=== PATIENT | female | born 1965 ===

== ENCOUNTER 2017-11-12 05:58 | Day surgery (SDC) | payer MEDICAID ==
[2017-11-01 09:24] VITALS: BMI 39.9
[2017-11-12 07:09] VITALS: O2SAT 99
[2017-11-12] MEDS ORDERED: Bupivacaine HCl 0.25% PF (30 ml) Inj ONE (07:39)
[2017-11-12] MEDS ORDERED: ceFAZolin 1 gm in NS 1 GM/100 ML BAG IVPB ONE ×2 (07:39→08:15)
[2017-11-12] MEDS ORDERED: Lidocaine Hydrochloride 10 ML INJ ONE (07:39)
[2017-11-12] MEDS ORDERED: Dexamethasone 4 mg/1 ml ONE (07:40)
[2017-11-12] MEDS ORDERED: Midazolam 2 MG/2 ML VIAL ONE (08:06)
[2017-11-12] MEDS ORDERED: Propofol 10 mg/ml Inj (20 ML) ONE ×2 (08:08→08:35)
[2017-11-12] MEDS ORDERED: Phenylephrine 10 mg/ml Inj ONE (08:14)
[2017-11-12] MEDS ORDERED: Lactated Ringer's 1,000 ML IV ONE (08:15)
--- NOTE | 2017-11-12 09:52 | PCM.SURG1 ---
Surgeon's Initial Post Op Note - Surgeon's Notes Surgeon: Dr. Zachary Villa Vice President Pharmacy: Dr. Yvrose Borjas PGY-2 Type of Anesthesia: IV Sedation, Local Anesthesia Administered By: Kimberly (OIL DISTRIBUTOR TENDER) Pre-Operative Diagnosis: painful hallux abductovalgus deformity R foot, painful exostosis of midfoot R foot Operative Findings: see op report Post-Operative Diagnosis: same Operation Performed: bunionectomy with horizontal osteotomy and screw fixation R foot, exostectomy of exostosis midfoot all R foot Specimen/Specimens Removed: bone R foot Estimated Blood Loss: EBL {In ML}: 1 Blood Products Given: N/A Drains Used: No Drains Post-Op Condition: Good Date of Surgery/Procedure: 11/12/17 Time of Surgery/Procedure: 08:30
[2017-11-12] MEDS ORDERED: HYDROmorphone 0.5 mg/0.5 ml ISec IVP PRN (09:54)
[2017-11-12] MEDS ORDERED: Lactated Ringer's 1,000 ML IV SCH (10:00)
--- NOTE | 2017-11-12 10:20 | RAD ---
PROCEDURE: Right Foot Radiographs. HISTORY: s/p R foot surgery COMPARISON: 08/27/2017 FINDINGS: BONES: Status post bunionectomy and osteotomy right 1st metatarsal. No acute fracture. No other surgical changes. JOINTS: Normal. SOFT TISSUES: Normal. OTHER FINDINGS: None. IMPRESSION: Bunionectomy and osteotomy 1st metatarsal.
[2017-11-12 12:36] VITALS: BP 112/72; PULSE 85; RESP 18; TEMP 98.1
--- NOTE | 2017-11-13 02:46 | OP ---
PROCEDURE DATE: 11/12/2017 PREOPERATIVE DIAGNOSES: 1. Hallux abductor valgus deformity of right foot. 2. Painful exostosis of second tarsometatarsal joint, right foot. POSTOPERATIVE DIAGNOSES: 1. Hallux abductor valgus deformity of right foot. 2. Painful exostosis of second tarsometatarsal joint, right foot. PROCEDURE PERFORMED: 1. Efren bunionectomy with horizontal osteotomy with screw fixation, right foot. 2. Mid foot exostectomy of second tarsometatarsal joint, right foot. SURGEON: Ron Villa DPM INDUSTRIAL BOILERMAKER: Daiana Borjas DPM, PGY-2 TYPE OF ANESTHESIA: MAC IV sedation with local injection. ANESTHESIOLOGIST: Dr. Serrato; and Abdullahi Hoover CRNA . INDICATIONS: The patient is a 51-year-old female with the above-mentioned diagnosis. The patient is being treated by Dr. Villa in his office on an outpatient basis, where she has exhausted multiple forms of conservative treatment options including, but not limited to, home physical therapy, exercise, injections, and oral anti-inflammatories. The patient now requests surgical intervention at this time. All risks, benefits, and possible complication to the proposed procedure have been explained to the patient at length. The patient verbalized understanding and wished to proceed. All questions were answered. No guarantee's were given nor implied. Consent was signed and n.p.o. was confirmed prior to bringing the patient into the operating room. DESCRIPTION OF PROCEDURE: The patient was brought into the operating room and placed on the operating room table in a supine position. A well-padded pneumatic ankle tourniquet was applied in a supramalleolar position to the patient's right ankle. Once IV sedation was achieved, a local injection consisting of 20 mL, consisting of 0.25% Marcaine plain with 2% lidocaine plain in a 1:1 mixture was introduced via local block fashion to the patient's right foot. Once local anesthesia was achieved, the foot was then prepped and draped in the usual sterile manner and the procedure was begun. Procedure #1: Efren bunionectomy with horizontal osteotomy and screw fixation of right foot. Our attention was then directed to the dorsal aspect of the first metatarsal head of the patient's right foot, where an approximately 6 cm linear longitudinal incision was made medial and parallel to the tendon of the extensor hallucis longus and involved the contour of the deformity. The incision was deepened to the subcutaneous tissues using sharp and blunt dissection. Care was taken to identify and retract all vital neurovascular structures. All bleeders were cauterized and ligated as necessary. Attention was then directed back to the head of the first metatarsal, where an inverted L-type capsulotomy was performed over the dorsal aspect of the first metatarsal phalangeal joint. The periosteal and capsular structures were then carefully dissected free of their osseus attachments and reflected medially and laterally, thus exposing the head of the first metatarsal into the operative site. Next utilizing the oscillating bone saw, the dorsal and medial prominences were resected and passed in the operative field. All rough edges were then smoothed down. At this time, the hip was then externally rotated, and the knee was flexed to bring the medial surface of the foot superior to allow for better visualization of the medial aspect of the first metatarsal head for the osteotomy cut. Our attention was then redirected at the medial aspect of the first metatarsal head, where a [id number] V-type horizontal osteotomy was treated in the metaphyseal region of the bone, utilizing the oscillating bone saw. The apex of the osteotomy pointed distally with the arms pointing proximal plantar and proximal dorsally. The dorsal arm would be longer to accommodate for internal fixation. Once completion of the osteotomy was achieved, the capital fragment was distracted and shifted laterally into a more corrected position and then impacted upon the first metatarsal shaft. At this time, two 0.045 inch K-wires were driven from dorsal to plantar across the osteotomy site to serve as a temporary fixation. Following sequential removal of the K-wires and following standard AO principles and techniques a 2.7 x 16 mm Synthes cortical screw was inserted and placed across the osteotomy site with excellent compression achieved. The remaining K-wire was then removed and passed in the operating field. Our attention was then directed to the remaining medial bone shaft, which was then resected utilizing the oscillating bone saw and passed in the operating site. All rough bony edges were then smoothed down utilizing the off-loading saw. Correction of the deformity was accessed at this time, and was noted to be excellent. The wound was then flushed with copious amounts of sterile normal saline solution. The periosteal and capsular structures were then reapproximated and coapted using 2-0 and 3-0 Vicryl. The subcutaneous tissue was reapproximated using 4-0 Vicryl, and the skin was then reapproximated and coapted using 4-0 nylon suture in an interrupted horizontal mattress suture technique. Procedure #2: Mid foot exostectomy of second tarsometatarsal joint, right foot. Our attention was then directed to the dorsal aspect of the patient's right foot at the level of the second tarsometatarsal joint, where a bony exostosis could be palpated. Using a fresh #15 blade, an approximately 3 cm linear longitudinal incision was made over the bony exostosis with care being taken to avoid any other vital neurovascular and tendinous structures. The incision was then carried down deep using a curved hemostasis, and an incision was made through the capsular layer directed down to the level of bone. A periosteal elevator was utilized to reflect the periosteum medial and laterally, thus exposing the bony exostosis into the operating field. Next, utilizing the sagittal bone saw, the bony exostosis in question was then resected from the second tarsometatarsal joint intact in the operating wallace and sent for pathology. The wound was flushed with copious amounts of sterile normal saline solution. Correction of the deformity at this time did appear to be excellent. The subcuticular skin layers were reapproximated using 4-0 Vicryl and skin edges were reapproximated using 4-0 nylon in interrupted horizontal mattress sutures technique. Postoperative bandages included Xeroform gauze, 4 x 4 gauze, Kerlix, and a Coban post dressing. POSTOPERATIVE CONDITION: The patient tolerated the procedure and anesthesia well with no apparent complications or complaints. The patient was escorted from the OR to the recovery room with vital signs intact and neurovascular structures intact to the right lower extremity. The patient will be nonweightbearing to the right lower extremity with crutches and surgical shoe. The patient will follow up with Dr. Villa in his office on an outpatient basis within one week. Daiana Borjas DPM
== END 2017-11-12 12:55 | disposition home or self-care (01) ==
LOC: C.SDS 05:58
PROVIDERS: ATTEND Podiatrist
DX: M20.11 Hallux valgus (acquired), right foot (principal); M89.9 Disorder of bone, unspecified
CPT/HCPCS: 28104; 28296; 73620; 88304; 97116; 97161; C1713; G8978; G8979; G8980; J0690; J2250; J2370; J2704; J3010; J7120

== ENCOUNTER 2018-02-28 14:30 | Emergency (ER) | payer MEDICAID ==
[2018-02-28 14:30] VITALS: BMI 38.0
[2018-02-28 15:04] VITALS: RESP 18; TEMP 98.3
--- NOTE | 2018-02-28 16:05 | C.PDOC ---
History Of Present Illness 52 y/o female, w/PMhx of chronic right knee pain, presents to the ER complaining of ongoing pain to right knee. Patient states that she knows she needs to have surgery. Patient is also complaining of irritation and discomfort to the right knee which began after she was bit by a spider last night. Denies having fever, chills, and other joint involvement. Time Seen by Provider: 02/28/18 14:52 Chief Complaint (Nursing): Lower Extremity Problem/Injury History Per: Patient History/Exam Limitations: no limitations Onset/Duration Of Symptoms: Days Current Symptoms Are (Timing): Still Present Severity: Moderate Past Medical History Reviewed: Historical Data, Nursing Documentation, Vital Signs Vital Signs: Last Vital Signs Temp 98.3 F 02/28/18 14:57 Pulse 96 H 02/28/18 14:57 Resp 18 02/28/18 14:57 BP 128/81 02/28/18 14:57 Pulse Ox 97 02/28/18 16:19 - Medical History PMH: Arthritis, Asthma, Colonic Polyps, Depression, Fibromyalgia, Gall Bladder Disease, HTN, Peripheral Edema (right leg due to varicose veins), Rheumatoid Arthritis, Sleep Apnea (no c pap) Surgical History: Appendectomy, Cholecystectomy, Endoscopy Family History: States: No Known Family Hx - Social History Hx Tobacco Use: Yes Hx Alcohol Use: No Hx Substance Use: No - Immunization History Hx Tetanus Toxoid Vaccination: No Hx Influenza Vaccination: Yes Hx Pneumococcal Vaccination: Yes (x2 yrs ago) Review Of Systems Except As Marked, All Systems Reviewed And Found Negative. Constitutional: Negative for: Fever, Chills Musculoskeletal: Positive for: Other (right knee pain) Skin: Positive for: Rash Physical Exam - Physical Exam Appears: Non-toxic, No Acute Distress Skin: Normal Color, Warm, Dry, Other (right knee: approx 5 cm round area of erythema, hypopigmented with questionable central clearing, not raised, no signs of abscess, no signs of cellulitic process) Head: Atraumatic, Normacephalic Eye(s): bilateral: Normal Inspection Nose: Normal Oral Mucosa: Moist Neck: Supple Chest: Symmetrical Extremity: Normal ROM, No Tenderness, Swelling (right knee: chronic swelling) Pulses: Left Dorsalis Pedis: Normal (DP/PT), Right Dorsalis Pedis: Normal (DP/PT ) Neurological/Psych: Oriented x3, Normal Speech ED Course And Treatment O2 Sat by Pulse Oximetry: 97 (RA) Pulse Ox Interpretation: Normal Medical Decision Making Medical Decision Making: Impression: Rash Plan: --Doxycycline PO --Lyme IGG --Lyme IGM --Knee Immobilizer Updates: Patient has been discharged and instructed to follow up with orthopedic surgeon for right knee. Disposition - Disposition Referrals: [facility] [Outside] Disposition: HOME/ ROUTINE Disposition Time: 16:21 Condition: STABLE Additional Instructions: follow up with your doctor or medical clinic within 2 days call to make an appointment take medication as prescribed return to ER if symptoms worsens or progress Prescriptions: Doxycycline Hyclate 100 mg PO BID #20 capsule Instructions: Skin Rash (DC) Forms: [facility] (Portuguese), General Discharge Instructions - Clinical Impression Clinical Impression: Rash - Scribe Statement The provider has reviewed the documentation as recorded by the Caroleeibe Manuel Zambrano Provider Attestation: All medical record entries made by the Scribe were at my direction and personally dictated by me. I have reviewed the chart and agree that the record accurately reflects my personal performance of the history, physical exam, medical decision making, and the department course for this patient. I have also personally directed, reviewed, and agree with the discharge instructions and disposition.
[2018-02-28 17:14] VITALS: BP 135/79; PULSE 91
[2018-03-05 18:24] VITALS: O2SAT 97
[2018-03-05 21:29] LABS: LYME IGM NEGATIVE (NEGATIVE)
[2018-03-05 21:31] LABS: LYME IGG NEGATIVE (NEGATIVE)
== END 2018-02-28 16:56 | disposition home or self-care (01) ==
LOC: C.ER 14:30
DX: R21 Rash and other nonspecific skin eruption (principal)

== ENCOUNTER 2018-03-07 05:59 | Day surgery (SDC) | payer MEDICAID ==
[2018-02-18 11:30] VITALS: BMI 38.0
[2018-03-07] MEDS ORDERED: Lidocaine Hydrochloride 10 ML INJ ONE (07:32)
[2018-03-07] MEDS ORDERED: Bupivacaine 0.25% 20 ML INJ IJ ONE ×2 (07:41→08:43)
[2018-03-07] MEDS ORDERED: Propofol 10 mg/ml Inj (20 ML) ONE (08:05)
[2018-03-07] MEDS ORDERED: Midazolam 2 MG/2 ML VIAL ONE (08:05)
[2018-03-07] MEDS ORDERED: ceFAZolin IV 1 gm in Dextrose 2 GM/100 ML BAG IVPB ONE (08:09)
[2018-03-07] MEDS ORDERED: Propofol 10 mg/ml 1,000 MG/100 ML VIAL ONE (08:17)
[2018-03-07] MEDS ORDERED: Lidocaine 1% 20 MG/2 ML PF AMP ONE (08:18)
[2018-03-07] MEDS ORDERED: Dexamethasone 4 mg/1 ml ONE (08:42)
[2018-03-07] MEDS ORDERED: Oxycodone/Acetaminophen 5/325 mg Tab PO PRN ×2 (09:02)
--- NOTE | 2018-03-07 09:04 | PCM.SURG1 ---
Surgeon's Initial Post Op Note - Surgeon's Notes Surgeon: Dr. Ron Villa, DPM Contact Lens Assistant: Dr. Colon, PGY2, Dr. Gordillo, PGY1 Type of Anesthesia: IV Sedation, Local Anesthesia Administered By: Dr. Cooney Pre-Operative Diagnosis: Left Foot Painful Ostosis dorsal midfoot Operative Findings: see dictation. I: Pre-operative: 20 cc 1:1 mixture of 1% Lidocaine plain and 0.25% Marcaine plain; 7 cc 0.25% Marcain plain. Intra- operative: 3 cc 0.25% Marcaine plain, 1 cc 4 mg/mL Dexamethasone. M: 3-0 Vicryl , 4-0 Vicryl, 3-0 Nylon Post-Operative Diagnosis: same as above Operation Performed: Left Foot Ostectomy dorsal midfoot Specimen/Specimens Removed: none Estimated Blood Loss: EBL {In ML}: 1 Blood Products Given: N/A Drains Used: No Drains Post-Op Condition: Good Date of Surgery/Procedure: 03/07/18 Time of Surgery/Procedure: 09:04
[2018-03-07] MEDS ORDERED: HYDROmorphone 0.5 mg/0.5 ml ISec IVP PRN (09:12)
[2018-03-07 10:21] VITALS: RESP 15
[2018-03-07 10:35] VITALS: BP 114/70; PULSE 86; TEMP 97.7; O2SAT 98
--- NOTE | 2018-03-07 13:03 | RAD ---
Date of service: 03/07/2018 PROCEDURE: Left Foot Radiographs. HISTORY: s/p left foot dorsal ostectomy COMPARISON: None. FINDINGS: BONES: No interval fracture. There has been interval resection of the prior dorsal tarsal hypertrophic changes. Large os tibialis externum 1st metatarsal joint space narrowing -osteoarthrosis and hallux valgus orientation JOINTS: As above SOFT TISSUES: Normal. OTHER FINDINGS: None. IMPRESSION: Interval post resection of the prior prominent dorsal tarsal hypertrophic change. Other findings as above.
== END 2018-03-07 10:48 | disposition home or self-care (01) ==
LOC: C.SDS 05:59
PROVIDERS: ATTEND Podiatrist
DX: M25.775 Osteophyte, left foot (principal); M06.9 Rheumatoid arthritis, unspecified; M79.7 Fibromyalgia; F17.210 Nicotine dependence, cigarettes, uncomplicated; M32.9 Systemic lupus erythematosus, unspecified
CPT/HCPCS: 28122; 73630; J0690; J1100; J2001; J2250; J2704; J3010